=== PATIENT | female | born 1940 | race Caucasian/White ===

== ENCOUNTER → 2017-09-16 | Outpatient (CLI) | payer MEDICARE ==
[~2017-09-16] MED LIST: AMIO200T PO; AMIO400T4 PO; AMIT25TA PO; BISA10SU65 PR; CIPR500T87 PO; FLUT1DIS3 INH; FLUT1DIS5 IH; FURO20TA3 PO; GABA300C10 PO; GLIP10TA13 PO; GLIP5TAB22 PO; HYDR500C PO; INSU100I28 SQ-INSULIN; INSU100V11 SQ; INSU100V5 SQ-INSULIN; IPRA0.2S35 INH; LORA-445 PO; METF500T4 PO; NPH,100V5 SC; POLY17PO5 PO; POTA10TA31 PO; PRED10TA PO; PRED5TAB19 PO; SIMV20TA3 PO
== END | disposition home or self-care (01) ==
LOC: CFH 09:56 → EDSTATUS 10:00
PROVIDERS: ATTEND Internal Medicine Cardiovascular Disease
DX: I08.1 Rheumatic disorders of both mitral and tricuspid valves (principal); E78.5 Hyperlipidemia, unspecified; E11.9 Type 2 diabetes mellitus without complications; I48.91 Unspecified atrial fibrillation; Z95.3 Presence of xenogenic heart valve
CPT/HCPCS: 93306

== ENCOUNTER → 2018-10-27 | Outpatient (CLI) | payer MEDICARE ==
[~2018-10-27] MED LIST changes: -AMIO400T4 PO; +AMIO400T5 PO; +METF500T17 PO; -METF500T4 PO
== END | disposition home or self-care (01) ==
LOC: CVU 12:56
PROVIDERS: ATTEND Internal Medicine Cardiovascular Disease
DX: Z01.810 Encounter for preprocedural cardiovascular examination (principal); R09.89 Other specified symptoms and signs involving the circulatory and respiratory systems; E78.5 Hyperlipidemia, unspecified; E11.9 Type 2 diabetes mellitus without complications; I48.91 Unspecified atrial fibrillation; Z95.2 Presence of prosthetic heart valve
CPT/HCPCS: 93306; 93880

== ENCOUNTER 2019-05-30 12:47 | Outpatient (CLI) | payer MEDICARE ==
[~2019-05-30 12:47] MED LIST changes: +CHOL500050 PO; +INSU300I SQ-INSULIN; +LUTE40CA PO; +METO25TA91 PO; +MULT-257 PO; +PATI16.8 PO
[2019-05-30] MEDS ORDERED: UBID30CA9 PO (13:43)
[2019-05-30] MEDS ORDERED: [UNRECOGNIZED DRUG - OTHER] INJ (13:43)
[2019-05-30] MEDS ORDERED: FLUT9.9S INH (13:43)
[2019-05-30] MEDS ORDERED: MAGN400T7 PO (13:43)
[2019-05-30] MEDS ORDERED: INSU100C5 SQ-INSULIN (13:43)
[2019-05-30] MEDS ORDERED: HYDR500C3 PO (13:43)
[2019-05-30] MEDS ORDERED: astelin nasal spray INH (13:43)
[2019-05-30] MEDS ORDERED: BACL-19 PO (13:43)
[2019-05-30] MEDS ORDERED: FLUT100D IH (13:43)
[2019-05-30] MEDS ORDERED: FEXO180T72 PO (13:43)
[2019-05-30] MEDS ORDERED: ALBU8.5H8 INH (13:43)
[2019-05-30] MEDS ORDERED: CHOL200024 PO (13:43)
[2019-05-30] MEDS ORDERED: CYAN25009 PO (13:43)
[2019-05-30] MEDS ORDERED: LEVO50TA5 PO (13:43)
== END 2019-05-30 23:59 | disposition home or self-care (01) ==
LOC: STAR 12:47
PROVIDERS: ATTEND Orthopaedic Surgery
DX: Z01.818 Encounter for other preprocedural examination (principal); S83.242A Other tear of medial meniscus, current injury, left knee, initial encounter; I45.10 Unspecified right bundle-branch block; X58.XXXA Exposure to other specified factors, initial encounter; Y93.89 Activity, other specified; Y92.89 Other specified places as the place of occurrence of the external cause; Y99.8 Other external cause status
CPT/HCPCS: 93005

== ENCOUNTER 2019-06-07 10:33 | Day surgery (SDC) | payer MEDICARE ==
[~2019-06-07] VITALS: Ht 152.4 cm; Wt 66.4 kg
[2019-06-07 11:17] VITALS: BP 134/68
== END 2019-06-07 15:45 | disposition home or self-care (01) ==
LOC: OUT 10:33
PROVIDERS: ATTEND Orthopaedic Surgery
DX: S83.242A Other tear of medial meniscus, current injury, left knee, initial encounter (principal); S83.282A Other tear of lateral meniscus, current injury, left knee, initial encounter; M17.12 Unilateral primary osteoarthritis, left knee; M65.862 Other synovitis and tenosynovitis, left lower leg; E11.9 Type 2 diabetes mellitus without complications; J45.909 Unspecified asthma, uncomplicated; Z72.89 Other problems related to lifestyle; Z79.4 Long term (current) use of insulin; Z79.891 Long term (current) use of opiate analgesic; Z79.899 Other long term (current) drug therapy; Z88.8 Allergy status to other drugs, medicaments and biological substances; Z90.710 Acquired absence of both cervix and uterus; Z90.49 Acquired absence of other specified parts of digestive tract; Z95.2 Presence of prosthetic heart valve; Z82.49 Family history of ischemic heart disease and other diseases of the circulatory system; X50.1XXA Overexertion from prolonged static or awkward postures, initial encounter; Y93.89 Activity, other specified; Y92.89 Other specified places as the place of occurrence of the external cause; Y99.8 Other external cause status
CPT/HCPCS: 29880; 82962; J0690; J1100; J2250; J2370; J2405; J2704; J2795; J3490; J7120; J3010

== ENCOUNTER 2020-03-31 10:54 | Outpatient (CLI) | payer MEDICARE ==
[~2020-03-31 10:54] MED LIST changes: +ALBU8.5H8 INH; +BACL-19 PO; +CHOL200024 PO; +CYAN25009 PO; +FEXO180T72 PO; +FLUT100D IH; +FLUT9.9S INH; +HYDR500C3 PO; +INSU100C5 SQ-INSULIN; +LEVO50TA5 PO; +MAGN400T9 PO; +SIMV20TA19 PO; -SIMV20TA3 PO; +UBID30CA9 PO; +[UNRECOGNIZED DRUG - OTHER] INJ; +astelin nasal spray INH
== END 2020-03-31 23:59 | disposition home or self-care (01) ==
LOC: CFH 10:54 → EDSTATUS 11:15 → CFH 23:59
PROVIDERS: ATTEND Internal Medicine Cardiovascular Disease
DX: I34.0 Nonrheumatic mitral (valve) insufficiency (principal)
CPT/HCPCS: 93306

== ENCOUNTER → 2020-09-24 | Outpatient (CLI) | payer MEDICARE | END | disposition home or self-care (01) | LOC: CFH 10:45 | PROVIDERS: ATTEND Orthopaedic Surgery | DX: M51.16 Intervertebral disc disorders with radiculopathy, lumbar region (principal); M48.061 Spinal stenosis, lumbar region without neurogenic claudication; M41.86 Other forms of scoliosis, lumbar region | CPT/HCPCS: 72110 ==

== ENCOUNTER → 2021-02-03 | Outpatient (CLI) | payer MEDICARE ==
[~2021-02-03] MED LIST changes: -FLUT100D IH; +FLUT100D2 IH
[2021-02-03 07:48] LABS: MICROSCOPIC NOT IND
[2021-02-03 07:55] LABS: ALBUMIN 4.1 g/dL (3.4-5.0); ANION GAP 7 mmol/L (5-15); CALCIUM 9.1 mg/dL (8.5-10.1); CHLORIDE 103 mmol/L (98-107)
[2021-02-03 08:06] LABS: % IRON SATURATION 31 % (20-55); ALANINE AMINOTRANSFERASE 23 U/L (12-78); ALKALINE PHOSPHATASE 62 U/L (45-117); BILIRUBIN,TOTAL 0.4 mg/dL (0.2-1.0); IRON LEVEL 72 mcg/dL (50-170); T4 (THYROXINE) 8.5 mcg/dL (4.8-13.9); TOTAL IRON BINDING CAPACITY 229 mcg/dL (250-450); TOTAL PROTEIN 7.1 g/dL (6.4-8.2)
[2021-02-03 08:23] LABS: CREATININE,URINE RANDOM 21.8 mg/dL
[2021-02-03 09:49] LABS: MEAN CORPUSCULAR HEMOGLOBIN 38.7 pg (27.0-34.8); MEAN CORPUSCULAR HGB CONC 33.6 g/dL (32.4-35.8); MEAN PLATELET VOLUME 8.1 fL (7.4-10.4); RED BLOOD COUNT 2.58 x10^6/uL (3.82-5.3); RED CELL DISTRIBUTION WIDTH 14.7 % (9.6-15.2)
[2021-02-03 14:17] LABS: PLATELET COUNT 594 x10^3/uL (130-400)
[2021-02-03 14:18] LABS: MD YES
[2021-02-03 14:27] LABS: BASOS#(MANUAL) 0.13 x10^3/uL (0-0.1); BASOS% (MANUAL) 2 % (0-1); EOS#(MANUAL) 0.07 x10^3/uL (0.0-0.4); EOS% (MANUAL) 1 % (1-7); LYMPH#(MANUAL) 0.65 x10^3/uL (1-3.4); LYMPHS% (MANUAL) 10 % (22-44); SEG#(MANUAL) 4.62 x10^3/uL (1.8-6.8); SEGS% (MANUAL) 71 % (42-75)
[2021-02-03 14:33] LABS: ANISOCYTOSIS 2+; OVALOCYTES 1+; POLYCHROMASIA 1+
[2021-02-03 14:35] LABS: SCHISTOCYTES 1+; TEAR DROPS 1+
[2021-02-03 14:37] LABS: GIANT PLATELETS 1+; LARGE PLATELETS 1+
[2021-02-03 14:40] LABS: <PLATELET ESTIMATE> INCREASED
[2021-02-03 14:43] LABS: BAND#(MANUAL) 0.13 x10^3/uL; BANDS%(MANUAL) 2 % (0-7); MONOS#(MANUAL) 0.91 x10^3/uL (0.3-2.7); MONOS% (MANUAL) 14 % (2-9)
[2021-02-03 14:47] LABS: PMNS WITH VACUOLES 1+
[2021-02-03 14:49] LABS: HYPOGRAN PLTS 1+
[2021-02-03 14:58] LABS: BIZARRE PLATELETS 1+
== END | disposition home or self-care (01) ==
LOC: LAB 07:12
PROVIDERS: ATTEND Nurse Practitioner
DX: D47.3 Essential (hemorrhagic) thrombocythemia (principal); M48.00 Spinal stenosis, site unspecified; K21.9 Gastro-esophageal reflux disease without esophagitis; E11.22 Type 2 diabetes mellitus with diabetic chronic kidney disease; I12.9 Hypertensive chronic kidney disease with stage 1 through stage 4 chronic kidney disease, or unspecified chronic kidney disease; E87.5 Hyperkalemia; J45.909 Unspecified asthma, uncomplicated; E55.9 Vitamin D deficiency, unspecified; E78.5 Hyperlipidemia, unspecified; G60.9 Hereditary and idiopathic neuropathy, unspecified; E61.1 Iron deficiency; N18.30 Chronic kidney disease, stage 3 unspecified; R80.9 Proteinuria, unspecified; E87.1 Hypo-osmolality and hyponatremia; F41.8 Other specified anxiety disorders
CPT/HCPCS: 36415; 80053; 81003; 82570; 82728; 83036; 83540; 83550; 83735; 84156; 84436; 84443; 84481; 84550; 85025

== ENCOUNTER 2021-04-13 12:55 | Outpatient (CLI) | payer MEDICARE | END 2021-04-13 23:59 | disposition home or self-care (01) | LOC: CFH 12:55 → EDSTATUS 13:00 → CFH 23:59 | PROVIDERS: ATTEND Internal Medicine Cardiovascular Disease | DX: I08.1 Rheumatic disorders of both mitral and tricuspid valves (principal) | CPT/HCPCS: 93306 ==

== ENCOUNTER → 2021-04-16 | Outpatient (CLI) | payer MEDICARE ==
[2021-04-16 08:13] LABS: MEAN CORPUSCULAR HEMOGLOBIN 37.4 pg (27.0-34.8); MEAN CORPUSCULAR HGB CONC 32.7 g/dL (32.4-35.8); MEAN PLATELET VOLUME 14.6 fL (7.4-10.4); RED BLOOD COUNT 2.92 x10^6/uL (3.82-5.3); RED CELL DISTRIBUTION WIDTH 15.4 % (9.6-15.2)
[2021-04-16 08:15] LABS: ALANINE AMINOTRANSFERASE 28 U/L (12-78); ALBUMIN 4.1 g/dL (3.4-5.0); ANION GAP 8 mmol/L (5-15); CALCIUM 9.1 mg/dL (8.5-10.1); CHLORIDE 99 mmol/L (98-107)
[2021-04-16 08:24] LABS: ALKALINE PHOSPHATASE 65 U/L (45-117); BILIRUBIN,TOTAL 0.4 mg/dL (0.2-1.0); CHOL/HDL RATIO 3.1; CHOLESTEROL, TOTAL 158 mg/dL (140-239); HDL CHOL % 32 % (28-40); HDL CHOLESTEROL (DIRECT) 51 mg/dL (40-60); LDL CHOLESTEROL,CALCULATED 74 mg/dL (54-169); LDL/HDL RATIO 1.5 (0.5-3.0); TOTAL PROTEIN 7.2 g/dL (6.4-8.2); TRIGLYCERIDES 166 mg/dL (50-200); VLDL CHOLESTEROL 33 mg/dL (0-25)
[2021-04-16 09:57] LABS: PLATELET COUNT 543 x10^3/uL (130-400)
[2021-04-16 10:01] LABS: ANISOCYTOSIS 2+; BASOS#(MANUAL) 0.08 x10^3/uL (0-0.1); BASOS% (MANUAL) 1 % (0-1); LYMPH#(MANUAL) 0.97 x10^3/uL (1-3.4); LYMPHS% (MANUAL) 12 % (22-44); MONOS#(MANUAL) 0.57 x10^3/uL (0.3-2.7); MONOS% (MANUAL) 7 % (2-9); POLYCHROMASIA 1+; SEG#(MANUAL) 6.48 x10^3/uL (1.8-6.8); SEGS% (MANUAL) 80 % (42-75)
[2021-04-16 10:02] LABS: HYPERSEG PMNs 1+; OVALOCYTES 1+; TEAR DROPS 1+
[2021-04-16 10:03] LABS: <PLATELET ESTIMATE> INCREASED; BIZARRE PLATELETS 1+; GIANT PLATELETS 1+; HYPOGRAN PLTS 1+; LARGE PLATELETS 1+
== END | disposition home or self-care (01) ==
LOC: LAB 07:43
PROVIDERS: ATTEND Internal Medicine Cardiovascular Disease
DX: I48.0 Paroxysmal atrial fibrillation (principal); D64.9 Anemia, unspecified; N18.30 Chronic kidney disease, stage 3 unspecified
CPT/HCPCS: 36415; 80053; 80061; 83036; 84436; 84481; 85025

== ENCOUNTER → 2021-06-04 | Outpatient (CLI) | payer MEDICARE ==
[2021-06-04 10:39] LABS: BASOPHILS % (AUTO) 1 % (0-1); EOSINOPHILS % (AUTO) 1 % (1-7); LYMPHOCYTES % (AUTO) 5 % (22-44); MEAN CORPUSCULAR HEMOGLOBIN 38.1 pg (27.0-34.8); MEAN CORPUSCULAR HGB CONC 33.9 g/dL (32.4-35.8); MEAN PLATELET VOLUME 7.6 fL (7.4-10.4); MONOCYTES % (AUTO) 11 % (2-9); NEUTROPHILS % (AUTO) 82 % (42-75); PLATELET COUNT 450 x10^3/uL (130-400); RED BLOOD COUNT 2.51 x10^6/uL (3.82-5.3)
[2021-06-04 10:44] LABS: ALANINE AMINOTRANSFERASE 24 U/L (12-78); ALBUMIN 3.9 g/dL (3.4-5.0); ANION GAP 7 mmol/L (5-15); CALCIUM 9.5 mg/dL (8.5-10.1); CHLORIDE 102 mmol/L (98-107); CREATININE 1.55 mg/dL (0.55-1.02)
[2021-06-04 10:47] LABS: ALKALINE PHOSPHATASE 67 U/L (45-117); BILIRUBIN,TOTAL 0.3 mg/dL (0.2-1.0); TOTAL PROTEIN 7.4 g/dL (6.4-8.2)
[2021-06-04 11:12] LABS: ANISOCYTOSIS 1+; OVALOCYTES 1+
[2021-06-04 11:13] LABS: <PLATELET ESTIMATE> INCREASED; BIZARRE PLATELETS 1+; GIANT PLATELETS 1+; HYPOGRAN PLTS 1+; LARGE PLATELETS 1+; STOMATOCYTES 1+; TEAR DROPS 1+
[2021-06-04 11:14] LABS: HYPERSEG PMNs 1+
== END | disposition home or self-care (01) ==
LOC: LAB 10:18
PROVIDERS: ATTEND Nurse Practitioner Gerontology
DX: D64.9 Anemia, unspecified (principal); N18.30 Chronic kidney disease, stage 3 unspecified
CPT/HCPCS: 36415; 80053; 85025